=== PATIENT | female | born 1985 | race Caucasian/White ===

== ENCOUNTER 2017-07-26 12:31 | Emergency (ER) | payer BC ==
[~2017-07-26] VITALS: Ht 170.2 cm; Wt 82.6 kg
[2017-07-26 12:31] VITALS: BP_SYST 144
[~2017-07-26 12:31] MED LIST: CLOM50TA PO
[2017-07-26 13:35] VITALS: BP_SYST 144
== END 2017-07-26 13:35 | disposition home or self-care (01) ==
LOC: SED 12:31
DX: J01.00 Acute maxillary sinusitis, unspecified (principal); R03.0 Elevated blood-pressure reading, without diagnosis of hypertension; Z90.89 Acquired absence of other organs; Z90.710 Acquired absence of both cervix and uterus
CPT/HCPCS: 81025; 99283

== ENCOUNTER 2020-03-26 07:53 | Emergency (ER) | payer BC, OTHER ==
[~2020-03-26] VITALS: Ht 167.6 cm; Wt 63.5 kg
[2020-03-26 07:53] VITALS: BP_SYST 137
[2020-03-26 08:31] LABS: BASOPHILS # (AUTO) 0.1 K/uL (0.0-0.2); BASOPHILS % (AUTO) 0.7 % (0.0-2.0); EOSINOPHILS # (AUTO) 0.2 K/uL (0.0-0.4); EOSINOPHILS % (AUTO) 1.9 % (0.0-4.0); HEMOGLOBIN 13.4 g/dL (12.0-16.0); LYMPHOCYTES # (AUTO) 2.4 K/uL (1.0-5.5); LYMPHOCYTES % (AUTO) 28.6 % (20.5-51.5); MEAN CORPUSCULAR HEMOGLOBIN 32 pg (27-31); MEAN CORPUSCULAR HGB CONC 35 % (32-36); MEAN CORPUSCULAR VOLUME 91 fL (79.0-98.0); MONOCYTES # (AUTO) 0.5 K/uL (0.0-1.0); MONOCYTES % (AUTO) 5.7 % (1.7-9.3); NEUTROPHILS # (AUTO) 5.3 K/uL (1.8-7.7); NEUTROPHILS % (AUTO) 63.1 % (40.0-70.0); PLATELET COUNT (AUTO) 355 K/uL (130-430); RED CELL DISTRIBUTION WIDTH 13.1 % (9.0-15.0); WHITE BLOOD COUNT (AUTO) 8.5 K/uL (4.8-10.8)
[2020-03-26 08:42] LABS: CALCIUM 8.5 mg/dL (8.4-11.0); CREATININE 0.67 mg/dL (0.55-1.30); POTASSIUM 3.8 mmol/L (3.5-5.1)
[2020-03-26 08:48] LABS: ALBUMIN 3.9 g/dL (3.4-4.8); TOTAL BILIRUBIN 0.4 mg/dL (0.0-1.0)
[2020-03-26 10:07] VITALS: BP_SYST 137
== END 2020-03-26 10:07 | disposition home or self-care (01) ==
LOC: SED 07:53
DX: R07.89 Other chest pain (principal)
CPT/HCPCS: 36415; 71045; 80053; 84484; 84703; 85025; 93005; 99285

== ENCOUNTER 2021-08-13 19:47 | Emergency (ER) | payer OTHER ==
[~2021-08-13] VITALS: Ht 167.6 cm; Wt 81.6 kg
[2021-08-13 20:02] VITALS: BP_SYST 138
--- NOTE | 2021-08-13 20:12 | NUR ---
Dr Sandoval evaluating patient in the triage room
--- NOTE | 2021-08-13 21:07 | NUR ---
Patient to ER bed 03 to gown for evaluation. Side rails up.
[2021-08-13 21:17] LABS: BASOPHILS # (AUTO) 0.1 K/uL (0.0-0.2); BASOPHILS % (AUTO) 0.9 % (0.0-2.0); EOSINOPHILS # (AUTO) 0.1 K/uL (0.0-0.4); EOSINOPHILS % (AUTO) 1.2 % (0.0-4.0); HEMATOCRIT 39.2 % (36-48); HEMOGLOBIN 13.7 g/dL (12.0-16.0); LYMPHOCYTES # (AUTO) 4.6 K/uL (1.0-5.5); LYMPHOCYTES % (AUTO) 38.8 % (20.5-51.5); MEAN CORPUSCULAR HEMOGLOBIN 32 pg (27-31); MEAN CORPUSCULAR HGB CONC 35 % (32-36); MEAN CORPUSCULAR VOLUME 90 fL (79.0-98.0); MONOCYTES # (AUTO) 0.7 K/uL (0.0-1.0); NEUTROPHILS # (AUTO) 6.3 K/uL (1.8-7.7); NEUTROPHILS % (AUTO) 53.1 % (40.0-70.0); PLATELET COUNT (AUTO) 374 K/uL (130-430); RED BLOOD CELL COUNT(AUTO) 4.36 MIL/uL (4.2-6.2); RED CELL DISTRIBUTION WIDTH 12.8 % (9.0-15.0); WHITE BLOOD COUNT (AUTO) 11.8 K/uL (4.8-10.8)
--- NOTE | 2021-08-13 21:29 | NUR ---
X3 DAYS LEFT LOWER ABD PAIN CONSTANT AND GETTING WORSE. PT WALKED TO RADIOLOGY FOR TESTING AND URINE ADN BLD HAS BEEN SENT TO LAB ALREADY, PT VERY PLEASANT AND PT STATED THAT SHE HAS AHD A HYSTERECTOMY RECENTLY AND APPROX. 5 DAYS AGO HAD A BLOOD CLOT IN THE SHOWER AND SINCE THEN SHE HAS BEEN HAVING LEFT LOWER ABD PAIN AND GETTING WORSE DAILY SINCE. CURRENTLY NO BLEEDING , PAIN CONSTANT AND INCREASES WITH PALPATION. CARE RESUMEDA DEEPIKA MCMAHON AWARE
[2021-08-13 21:35] LABS: BILIRUBIN,URINE NEGATIVE (NEGATIVE); CLARITY/URINE CLEAR (CLEAR); COLOR,URINE YELLOW (YELLOW); GLUCOSE,URINE NEGATIVE (NEGATIVE); KETONES,URINE NEGATIVE (NEGATIVE); LEUKOCYTE ESTERASE ,URINE NEGATIVE (NEGATIVE); NITRITE, URINE NEGATIVE (NEGATIVE); PH,URINE 6.5 (5.0-8.0); PROTEIN URINE NEGATIVE (NEGATIVE); UROBILINOGEN,URINE 0.2 (0.2-1.0)
[2021-08-13 21:44] LABS: BLOOD, URINE TRACE (NEGATIVE)
[2021-08-13 21:48] LABS: ANION GAP 11 (5-15); CALCIUM 9.2 mg/dL (8.4-11.0); CHLORIDE 101 mmol/L (98-107); CREATININE 0.75 mg/dL (0.55-1.30); GFR AFRICAN AMERICAN 112 mL/min (>90); GLUCOSE 93 mg/dL (70-99); POTASSIUM 3.8 mmol/L (3.5-5.1); SODIUM SERUM 139 mmol/L (136-145); TOTAL BILIRUBIN < 0.1 mg/dL (0.0-1.0); UREA NITROGEN, BLOOD 15 mg/dL (8-21)
[2021-08-13 21:49] LABS: ALANINE AMINOTRANSFERASE 27 U/L (12-78); ALBUMIN 3.9 g/dL (3.4-4.8); AMYLASE 76 U/L (0-100); ASPARTATE AMINOTRANSFERASE 15 U/L (10-37); LIPASE 101 U/L (73-393)
[2021-08-13 21:50] LABS: C-REACTIVE PROTEIN QUANT < 0.2 mg/dL (0-0.5)
[2021-08-13] MEDS ORDERED: AMOX-423 PO (22:14)
[2021-08-13] MEDS ORDERED: IBUP-1969 PO (22:14)
--- NOTE | 2021-08-13 22:26 | NUR ---
CALLED HOUSE SUP. FOR [facility].
[2021-08-13] MEDS ORDERED: IBUPROFEN 800 MG TABLET PO ONE (22:30)
[2021-08-13] MEDS ORDERED: AMOXICILLIN/CLAVULANATE POTASSIUM 250 MG/5 ML, 75 ML BTL PO ONE (22:30)
[2021-08-13 22:31] LABS: BACTERIA,URINE RARE /HPF (None Seen); MUCUS,URINE None Seen /LPF (None Seen); RBC,URINE 0-3 /HPF (0-3); WBC,URINE 0-3 /HPF (0-3)
[2021-08-13] MEDS ORDERED: AMOXICILLIN/CLAVULANATE POTASSIUM 500 MG TABLET ONE (22:38)
[2021-08-13 22:43] VITALS: BP_SYST 131
== END 2021-08-13 22:46 | disposition home or self-care (01) ==
LOC: SED 19:47
DX: K57.92 Diverticulitis of intestine, part unspecified, without perforation or abscess without bleeding (principal); Z79.899 Other long term (current) drug therapy
CPT/HCPCS: 36415; 76376; 80053; 81000; 82150; 83605; 83690; 84703; 85025; 86140; 99284

== ENCOUNTER 2022-01-31 08:59 | Emergency (ER) | payer BC, OTHER ==
[~2022-01-31] VITALS: Ht 167.6 cm; Wt 81.6 kg
[~2022-01-31 08:59] MED LIST changes: +AMOX-423 PO; +IBUP-1969 PO
[2022-01-31 09:00] VITALS: BP_SYST 125
--- NOTE | 2022-01-31 09:00 | NUR ---
Patient triaged and placed in waiting room. VSS and patient appears in no acute distress at this time. Accompanied by SELF, awaiting available bed, and MD notified of need for MSE.
--- NOTE | 2022-01-31 09:11 | NUR ---
DR MCMAHON OUT TO TRIAGE ROOM TO EVALUATE
--- NOTE | 2022-01-31 09:35 | NUR ---
PT STATES THAT SHE IS ALLERGIC TO [place] BITES AND NOW HAS SOME ALL OVER BODY, ONES ON LEFT UPPER ARM ARE SWOLLEN AND PAINFUL. PT STATES THIS HAS HAPPENED OFTEN AND SHE USUALLY GETS A STEROID SHOT AND IS DISCHARGED. AWAITING ORDERS
[2022-01-31 09:45] LABS: BASOPHILS % (AUTO) 0.6 % (0.0-2.0); EOSINOPHILS # (AUTO) 0.1 K/uL (0.0-0.4); EOSINOPHILS % (AUTO) 2.1 % (0.0-4.0); HEMATOCRIT 39.7 % (36-48); LYMPHOCYTES # (AUTO) 2.5 K/uL (1.0-5.5); LYMPHOCYTES % (AUTO) 37.4 % (20.5-51.5); MEAN CORPUSCULAR VOLUME 90 fL (79.0-98.0); MONOCYTES # (AUTO) 0.4 K/uL (0.0-1.0); MONOCYTES % (AUTO) 5.6 % (1.7-9.3); NEUTROPHILS # (AUTO) 3.6 K/uL (1.8-7.7); NEUTROPHILS % (AUTO) 54.3 % (40.0-70.0); PLATELET COUNT (AUTO) 429 K/uL (130-430); RED BLOOD CELL COUNT(AUTO) 4.43 MIL/uL (4.2-6.2); RED CELL DISTRIBUTION WIDTH 12.6 % (9.0-15.0); WHITE BLOOD COUNT (AUTO) 6.6 K/uL (4.8-10.8)
[2022-01-31 10:11] LABS: ANION GAP 8 (5-15); CALCIUM 9.5 mg/dL (8.4-11.0); CHLORIDE 102 mmol/L (98-107); CREATININE 0.86 mg/dL (0.55-1.30); GLUCOSE 93 mg/dL (70-99); POTASSIUM 4.1 mmol/L (3.5-5.1); SODIUM SERUM 138 mmol/L (136-145); UREA NITROGEN, BLOOD 11 mg/dL (8-21)
[2022-01-31 10:12] LABS: GFR AFRICAN AMERICAN 95 mL/min (>90)
[2022-01-31 10:15] LABS: ALANINE AMINOTRANSFERASE 35 U/L (12-78); ALBUMIN 4.2 g/dL (3.4-4.8); ASPARTATE AMINOTRANSFERASE 21 U/L (10-37); TOTAL BILIRUBIN 0.4 mg/dL (0.0-1.0)
[2022-01-31 10:20] LABS: C-REACTIVE PROTEIN QUANT < 0.2 mg/dL (0-0.5)
--- NOTE | 2022-01-31 10:28 | NUR ---
URINE PREG NEGATIVE
[2022-01-31] MEDS ORDERED: CLIN-22 PO (10:29)
[2022-01-31] MEDS ORDERED: PRED20TA PO (10:29)
--- NOTE | 2022-01-31 10:45 | NUR ---
PT CLEARED FOR DC. DENIES ANY PAIN. RX SENT TO PT'S PHARM FOR STEROID, ABX, AND IBUPROFEN. PT AMBULATED OUT OF ED IN STABLE CONDITION.
[2022-01-31 10:48] VITALS: BP_SYST 118
== END 2022-01-31 10:45 | disposition home or self-care (01) ==
LOC: SED 08:59
DX: L03.114 Cellulitis of left upper limb (principal); M79.622 Pain in left upper arm; Z79.899 Other long term (current) drug therapy
CPT/HCPCS: 36415; 80053; 81025; 83605; 85025; 86140; 99283

== ENCOUNTER 2022-05-22 08:08 | Emergency (ER) | payer BC ==
[~2022-05-22] VITALS: Ht 167.6 cm; Wt 81.6 kg
[~2022-05-22 08:08] MED LIST changes: +CLIN-22 PO; +PRED20TA PO
[2022-05-22 08:46] VITALS: BP_SYST 124
--- NOTE | 2022-05-22 08:49 | NUR ---
Patient triaged and placed in waiting room. VSS and patient appears in no acute distress at this time. Accompanied by SELF, awaiting available bed, and MD notified of need for MSE.
--- NOTE | 2022-05-22 09:35 | NUR ---
ER DR. WRIGHT EXAMINING PT IN TRIAGE
[2022-05-22] MEDS ORDERED: IBUPROFEN 600 MG TABLET PO ONE (09:45)
[2022-05-22] MEDS ORDERED: HYDR-3921 PO (13:11)
[2022-05-22] MEDS ORDERED: IBUP-1969 PO (13:11)
[2022-05-22] MEDS ORDERED: IBUPROFEN 600 MG TABLET ONE (13:14)
[2022-05-22 13:39] VITALS: BP_SYST 122
--- NOTE | 2022-05-22 13:39 | NUR ---
Patient given written and verbal discharge instructions and verbalizes understanding. ER MD discussed with patient the results and treatment provided. Patient in stable condition. ID arm band removed. Rx of NORCO AND IBUPROFEN given. Patient educated on pain management and to follow up with PMD. Pain Scale 0/10. Opportunity for questions provided and answered. Medication side effect fact sheet provided.
== END 2022-05-22 13:39 | disposition home or self-care (01) ==
LOC: SED 08:08
DX: S83.91XA Sprain of unspecified site of right knee, initial encounter (principal); Z79.899 Other long term (current) drug therapy; W11.XXXA Fall on and from ladder, initial encounter; Y93.89 Activity, other specified; Y92.89 Other specified places as the place of occurrence of the external cause; Y99.8 Other external cause status
CPT/HCPCS: 73564; 99283